=== PATIENT | male | born 1990 | race Caucasian/White ===

== ENCOUNTER 2022-02-28 09:26 | Emergency (ER) | payer OTHER ==
[~2022-02-28] VITALS: Ht 190.5 cm; Wt 104.3 kg
--- NOTE | 2022-02-28 09:41 | NUR ---
TO ER BED 06, BIBS C/O CHEST PAIN AND ACID REFLUX [id number], BREATHING EVEN AND NON LABORED, CONNECTED TO MONITOR, AWAITING MD VELA
--- NOTE | 2022-02-28 10:15 | NUR ---
[employer] AT BEDSIDE
[2022-02-28 10:30] LABS: BASOPHILS # (AUTO) 0.1 K/uL (0.0-0.2); BASOPHILS % (AUTO) 0.5 % (0.0-2.0); HEMATOCRIT 45 % (39-51); HEMOGLOBIN 15.1 g/dL (13.5-17.5); LYMPHOCYTES # (AUTO) 1.8 K/uL (0.8-4.8); LYMPHOCYTES % (AUTO) 18.1 % (20.0-44.0); MEAN CORPUSCULAR HGB CONC 33 g/dl (31.0-36.0); MEAN CORPUSCULAR VOLUME 82 fL (80-96); MONOCYTES # (AUTO) 1.1 K/uL (0.1-1.30); MONOCYTES % (AUTO) 11.4 % (2.0-12.0); NEUTROPHILS # (AUTO) 6.7 K/uL (1.8-8.9); PLATELET COUNT (AUTO) 304 K/uL (150-450); RED BLOOD CELL COUNT(AUTO) 5.49 MIL/uL (4.5-6.0); WHITE BLOOD COUNT (AUTO) 9.7 K/uL (4.3-11.0)
[2022-02-28] MEDS: MAG HYDROX/AL HYDROX/SIMETH 30 ML UDC PO ONE (10:30)
[2022-02-28] MEDS ORDERED: LIDOCAINE VISCOUS 2% UD 15 ML UDC ONE (10:37)
[2022-02-28] MEDS ORDERED: MAG HYDROX/AL HYDROX/SIMETH 30 ML UDC ONE (10:37)
[2022-02-28] MEDS: LIDOCAINE VISCOUS 2% UD 15 ML UDC MM ONE (10:40)
[2022-02-28 10:43] LABS: CALCIUM, SERUM 8.9 mg/dL (8.5-10.1); CARBON DIOXIDE 34 mmol/L (21-32); CHLORIDE 104 mmol/L (98-107); CREATININE 0.7 mg/dL (0.6-1.3); GLUCOSE 102 mg/dL (74-106); POTASSIUM 3.8 mmol/L (3.5-5.1); SODIUM SERUM 140 mmol/L (136-145); UREA NITROGEN, BLOOD 12 mg/dL (7-18)
[2022-02-28] MEDS ORDERED: PANT20TA2 PO ×2 (14:18→14:20)
--- NOTE | 2022-02-28 14:28 | NUR ---
Patient discharged to home in stable condition. Written and verbal after care instructions given. Patient verbalizes understanding of instruction.
[2022-02-28 14:32] VITALS: BP 135/85
== END 2022-02-28 14:28 | disposition home or self-care (01) ==
LOC: ER 09:35
DX: R07.9 Chest pain, unspecified (principal); K21.9 Gastro-esophageal reflux disease without esophagitis; I10 Essential (primary) hypertension; F17.200 Nicotine dependence, unspecified, uncomplicated; Z88.0 Allergy status to penicillin; Z79.899 Other long term (current) drug therapy
CPT/HCPCS: 36415; 71045-TC; 80048-TC; 84484-TC; 85025-TC

== ENCOUNTER 2023-05-16 14:20 | Emergency (ER) | payer SELFPAY ==
[~2023-05-16] VITALS: Ht 190.5 cm; Wt 101.6 kg
[~2023-05-16 14:20] MED LIST: PANT20TA2 PO
[2023-05-16 15:05] VITALS: BP 177/100; TEMP 98.1; O2SAT 99
[2023-05-16] MEDS ORDERED: AZIT250T PO (18:09)
== END 2023-05-16 18:46 | disposition home or self-care (01) ==
LOC: ER 14:20
DX: J40 Bronchitis, not specified as acute or chronic (principal); I10 Essential (primary) hypertension; F17.200 Nicotine dependence, unspecified, uncomplicated; Z88.0 Allergy status to penicillin; Z20.822 Contact with and (suspected) exposure to COVID-19
CPT/HCPCS: 71045-TC; 86403-TC